=== PATIENT | female | born 1980 | race Two or more races ===

== ENCOUNTER 2016-11-02 17:03 | Emergency (ER) | payer MEDICAID ==
[~2016-11-02] VITALS: Ht 152.4 cm; Wt 90.3 kg
--- NOTE | 2016-11-02 17:37 | Emergency Room Report ---
History of Present Illness General Chief Complaint: Vomiting Source: Patient Present Illness HPI 28-year-old female presents emergency department complaining of 6 episodes of vomiting since yesterday with decreased appetite and nausea. Patient denies abdominal pain she does report several onset headache that she rates as 8/10 in severity which Advil provide only minimal relief from before returns. Patient denies visual changes in her head trauma. Patient denies blood in the vomit she denies constipation or diarrhea. Pt. reports chills, and denies fevers, neck pain or stiffness. Patient denies recent ill contacts, or travel. Patient denies and states she has an IUD. She denies dysuria, hematuria, frequency or urgency. Denies CP, Palpitations, LOC, AMS, dizziness, Changes in Vision, Sensation, paresthesias, or a sudden severe headache. Allergies: Uncoded Allergies: SEAFOOD (Allergy, Unknown, 11/02/16) Patient History Past Medical History: see triage record Past Surgical History: none Pertinent Family History: none Last Menstrual Period: 07/05/16 Now: No Reviewed Nursing Documentation: PMH: Agreed, PSxH: Agreed Nursing Documentation-PMH Past Medical History: No Stated History Review of Systems All Other Systems: negative except mentioned in HPI Physical Exam Vital Signs Date Time Temp Pulse Resp B/P Pulse Ox O2 Delivery O2 Flow Rate FiO2 11/02/16 17:15 97.9 100 21 137/88 99 Room Air Sp02 EP Interpretation: reviewed, normal General Appearance: no apparent distress, alert, GCS 15, non-toxic Head: normocephalic, atraumatic Eyes: bilateral eye PERRL, bilateral eye normal inspection ENT: hearing grossly normal, normal pharynx, no angioedema, normal voice Neck: full range of motion, no meningismus, no bony tend, supple/symm/no masses Respiratory: chest non-tender, lungs clear, normal breath sounds, speaking full sentences Cardiovascular #1: regular rate, rhythm, no edema Gastrointestinal: normal bowel sounds, non tender, soft, non-distended, no guarding, no rebound Rectal: deferred Genitourinary: normal inspection, no CVA tenderness Musculoskeletal: back normal, gait/station normal, normal range of motion, non- tender Neurologic: alert, oriented x3, responsive, motor strength/tone normal, sensory intact, speech normal Psychiatric: judgement/insight normal, memory normal, mood/affect normal Skin: normal color, no rash, warm/dry, well hydrated Lymphatic: no adenopathy Medical Decision Making PA Attestation Dr. Lucero is my supervising Physician whom patient management has been discussed with. Diagnostic Impression: Primary Impression: Acute gastritis Qualified Codes: K29.00 - Acute gastritis without bleeding Additional Impression: Headache Qualified Codes: R51 - Headache ER Course 28-year-old female presents emergency department complaining of 6 episodes of vomiting since yesterday with decreased appetite and nausea. Patient denies abdominal pain she does report several onset headache that she rates as 8/10 in severity which Advil provide only minimal relief from before returns. Patient denies visual changes in her head trauma. Patient denies blood in the vomit she denies constipation or diarrhea. Pt. reports chills, and denies fevers, neck pain or stiffness. Patient denies recent ill contacts, or travel. Patient denies and states she has an IUD. She denies dysuria, hematuria, frequency or urgency Ddx considered but are not limited to GE, colitis, acute appendicitis, SBO, , Migraine, dehydration, SAH Vital signs: pt. is afebrile, H&PE are most consistent with GE ORDERS: -Urine HCG: negative -UA: unremarkable ED INTERVENTIONS: -10mg Reglan IM - Pt. tolerates oral fluid challenge, upon re-evaluation pt. states her WOOD has subsided. DISPOSITION: Pt. eloped right after oral fluid challenge, UA labs were still pending. Labs Test 11/02/16 17:45 Urine Color Pale yellow Urine Appearance Clear Urine pH 6 (4.5-8.0) Urine Specific [place] 1.025 (1.005-1.035) Urine Protein 2+ (NEGATIVE) Urine Glucose (UA) Negative (NEGATIVE) Urine Ketones Negative (NEGATIVE) Urine Occult Blood 3+ (NEGATIVE) Urine Nitrite Negative (NEGATIVE) Urine Bilirubin Negative (NEGATIVE) Urine Urobilinogen 1 MG/DL (0.0-1.0) Urine Leukocyte Esterase 1+ (NEGATIVE) Urine RBC 5-10 /HPF (0 - 2) Urine WBC 2-4 /HPF (0 - 2) Urine Squamous Epithelial Cells Few /LPF (NONE/OCC) Urine Calcium Oxalate Crystals Occasional /LPF (NONE) Urine Bacteria Few /HPF (NONE) Urine HCG, Qualitative Negative Last Vital Signs Date Time Temp Pulse Resp B/P Pulse Ox O2 Delivery O2 Flow Rate FiO2 11/02/16 17:15 97.9 100 21 137/88 99 Room Air Disposition: ELOPED Condition: Stable Patient Instructions: Nausea and Vomiting, Adult Additional Instructions: Take medications as directed. Follow up with PCP in 3-5 days - Follow up with neurologist if WOOD symptoms return. Return sooner to ED if new symptoms occur, or current symptoms become worse. - Please note that this Emergency Department Report was dictated using [employer] technology software, occasionally this can lead to erroneous entry secondary to interpretation by the dictation equipment. Karina Donahue November 02, 2016 17:37
[2016-11-02] MEDS ORDERED: Metoclopramide 10mg/2ml Inj IM ONE (17:45)
[2016-11-02 18:01] VITALS: BP 134/85
[2016-11-02 18:15] LABS: APPEARANCE,URINE CLEAR; KETONES,URINE NEGATIVE (NEGATIVE); LEUKOCYTE ESTERASE ,URINE 1+ (NEGATIVE); NITRITE,URINE NEGATIVE (NEGATIVE); PH,URINE 6 (4.5-8.0); PROTEIN,URINE 2+ (NEGATIVE); UROBILINOGEN,URINE 1 MG/DL (0.0-1.0)
[2016-11-02 18:20] LABS: BACTERIA,URINE FEW /HPF; CALCIUM OXALATE CRYSTALS,UR OCCASIONAL /LPF; SQUAMOUS EPITHELIAL CELL,UR FEW /LPF (NONE/OCC)
[2016-11-02 20:12] VITALS: BP 134/85
== END 2016-11-02 18:30 | disposition left against medical advice (07) ==
LOC: EMR 17:40
DX: K29.00 Acute gastritis without bleeding (principal); R51 Headache; Z91.013 Allergy to seafood
CPT/HCPCS: 81003; 81025; 96372; 99283; J2765